=== PATIENT | male | born 1960 | race Two or more races ===

== ENCOUNTER 2024-10-27 14:52 | Outpatient (CLI) | payer MEDICARE | END 2024-10-27 17:00 | disposition home or self-care (01) | LOC: Rad HDHVI 14:52 | PROVIDERS: ATTEND Internal Medicine Cardiovascular Disease | DX: I77.819 Aortic ectasia, unspecified site (principal); I10 Essential (primary) hypertension | CPT/HCPCS: 93306 ==

== ENCOUNTER → 2024-11-12 | Outpatient (CLI) | payer MEDICARE ==
[~2024-11-12] MED LIST: ALLO300T2 PO; APIX5TAB PO; FENT75DI2 TD; HYDR-4798 PO; LEVO25TA6 PO; METO-289 PO; OMEP20TA PO; PAR20T PO; SUCR1TAB31 OR; TAMS0.4C39 PO
--- NOTE | 2024-11-12 13:12 | DVH ---
XY CHEST TWO VIEWS ROUTINE CLINICAL HISTORY: PRE OP CARDIAC CLEARANCE COMPARISON: None TECHNIQUE: Frontal and lateral view of the chest was obtained FINDINGS: Lines and Tubes: None Lungs: No focal consolidation. Pleura: No effusion. No pneumothorax. Cardiomediastinal contours: Unremarkable Bones: No acute osseous abnormality. IMPRESSION: No acute cardiopulmonary disease.
--- NOTE | 2024-11-13 10:37 | DVHHP ---
ADMIT DATE: 11/12/2024 HISTORY OF PRESENT ILLNESS: The patient is 63 years old, who is new to me, who I saw approximately 3 weeks ago when he presented with signs and symptoms complex of increasing shortness of breath, PND, and orthopnea. He was also having intermittent episodes of chest pain. Pertinent medical history is significant for acid reflux symptoms, atrial fibrillation with rapid ventricular response and the patient was having all the symptoms of heart failure. The patient was put on anticoagulation. The beta blockade was initiated and since then his symptoms have improved, but he is continuing to experience chest pain and shortness of breath. Echocardiogram because of rapid ventricular response also showed diminished left ventricular ejection fraction in the 40 range and therefore, the patient is now scheduled to undergo left and right heart catheterization. Risks and benefits were explained to the patient. The patient understands and agrees. The patient denies any fever, chills, melena, hematochezia. No bleeding diathesis. No hematemesis, hemoptysis, hematuria or melena. He denies any history of CVA, denies any history of seizure disorder, movement disorder. Denies any connective tissue disease such as Lupus or rheumatoid arthritis. He has degenerative arthritis however. He has acid reflux. He has epigastric discomfort, but since being on sucralfate symptoms have improved. Denies any tobacco use currently. No history of respiratory failure, no history of sepsis in the past. No history of myocardial infarction. FAMILY HISTORY: Noncontributory. SOCIAL HISTORY: Negative at this present time. PHYSICAL EXAMINATION: VITAL SIGNS: Blood pressure is 142/80, pulse 70 and irregular. O2 saturation is 97% on room air. HEENT: Pupils are reactive. Funduscopic shows no AV nicking, no exudates, no papilledema. Sclerae anicteric. Extraocular muscles are intact. Tympanic membranes are within normal limits, with positive light reflex. Oral mucosa moist. Posterior pharynx without any exudate. NECK: No JVD appreciated. Carotid pulses are 2+ symmetrical. Normal upstroke and contour. No nuchal rigidity. Thyroid is within normal limits. PULMONARY: Clear to auscultation in all lung polo. No rhonchi. No wheezes. No egophony. Tympanic to percussion. CARDIOVASCULAR: Irregularly irregular. PMI is slightly inferiorly displaced. There is a 2/6 systolic murmur along the left sternal border as well. ABDOMEN: Soft, nontender. Normal bowel sounds. No epigastric tenderness at this present time. No CVA tenderness. No suprapubic tenderness. Stool guaiac is negative. NEUROLOGIC: The patient is intact. DTRs are 2+ symmetrical. Cranial nerves 2-12 are within normal limits. Sensory and motor modalities are intact. LABORATORY DATA: Labs show creatinine of 0.78 and hematocrit of 39.2. ASSESSMENT AND PLAN: The patient is now scheduled to undergo left and right heart catheterization with the possibility of revascularization. Further recommendations after the angiogram. Chris Yadav MD SA/DENITA TID: [id number] RECEIPT: [id number]
== END | disposition home or self-care (01) ==
LOC: Rad HDHVI 09:25
PROVIDERS: ATTEND Internal Medicine Cardiovascular Disease
DX: Z01.818 Encounter for other preprocedural examination (principal); R06.02 Shortness of breath
CPT/HCPCS: 36415; 71046; 80048; 85025; 85610; 85730

== ENCOUNTER 2024-11-13 07:23 | Day surgery (SDC) | payer MEDICARE ==
[2024-11-12 11:39] LABS: Chloride 102 mmol/L (98-107); Sodium 144 mmol/L (136-145)
[2024-11-12 11:40] LABS: Anion Gap 11 (5-15); Calcium 10.2 mg/dL (8.7-10.4); Carbon Dioxide 31 mmol/L (20-31)
[2024-11-12 11:41] LABS: Potassium 3.0 mmol/L (3.5-5.1)
[2024-11-12 11:44] LABS: Glucose 106 mg/dL (74-106)
[2024-11-12 11:45] LABS: BUN/Creatinine Ratio 15.3 (10.0-20.0); Blood Urea Nitrogen 15 mg/dL (9-23); INR 0.96 (0.9-1.15); Partial Thromboplastin Time 26.2 SEC (24.5-34.5); Prothrombin Time 10.2 sec (9.3-11.8)
[2024-11-12 12:20] LABS: Hematocrit 36.8 % (41.0-53.0); Hemoglobin 12.5 g/dL (13.5-17.5); Mean Corpuscular Hemoglobin 26.8 pg (28.0-32.0); Mean Corpuscular Volume 79.4 fL (80.0-100.0); Nucleated Red Blood Cells % 0.2 %
[~2024-11-13] VITALS: Ht 188 cm; Wt 95.7 kg
[2024-11-13] VITALS (7 sets, daily range): BP systolic 115–136; BP diastolic 72–95; PULSE 76–93; RESP 11–16; TEMP 98.9; O2SAT 93–95
[2024-11-13] MEDS: IOHEXOL 350 MG/ML 100ML IJ ONE (09:07)
[2024-11-13] MEDS: LIDOCAINE 2%HCL (LOCAL ANESTH.) INJ 20ML MDV ONE (09:14)
[2024-11-13] MEDS: MIDAZOLAM HCL 2MG/2ML 2ml VIAL (1mg/ml) ONE (09:14)
[2024-11-13] MEDS: ANGIOMAX 250 MG VIAL IV ONE (09:14)
[2024-11-13] MEDS: fentaNYL CITRATE 100 MCG/2 ML VL ONE (09:14)
[2024-11-13] MEDS: SODIUM CHL 0.9% 50 ML ONE (09:14)
[2024-11-13] MEDS: CLOPIDOGREL BISULFATE 75 MG TAB ONE (10:42)
--- NOTE | 2024-11-13 10:51 | DVHDS ---
DATE OF DISCHARGE: 11/13/2024 DISCHARGE DIAGNOSES: The patient underwent successful revascularization of the first diagonal with shockwave thrombectomy catheter. The patient's FFR on the diagonal was 0.78. FFR in the proximal to mid LAD was 0.92. No intervention was performed of the LAD. It is about a 30% narrowing at best. The patient underwent just shockwave thrombectomy device deployment of the first diagonal. I do not believe it was necessary to put a stent in the artery. Circumflex and right coronary artery have mild intimal irregularity without any flow-restrictive lesion. Left ventricular function shows an EF around 45% to 50% with an LVEDP of 16 mmHg with no gradient across the aortic valve. Right heart catheterization showed RA pressure of 6 to 7 mmHg, RV pressure of 32/8, capillary wedge pressure of 16, and PA pressure of 32/18. HOSPITAL COURSE: At this time, aggressive risk modification. AFib needs to be treated with anticoagulation. Antiplatelet therapy will be maintained for about a month. Chris Yadav MD SA/VIKKI TID: [id number] RECEIPT: [id number]
--- NOTE | 2024-11-13 12:10 | DVHOP ---
DATE OF SURGERY: 11/13/2024 PROCEDURES PERFORMED: * Selective left and right coronary angiography. * Ventriculogram. * Right iliac angiography. * FFR of the proximal LAD as well as proximal diagonal. * Angioplasty with thrombectomy shockwave treatment of the first diagonal of the LAD with a 2.5 x 12 mm shockwave thrombectomy catheter. There were no complications. The patient tolerated the procedure well. RESULTS: * Right heart catheterization showed RA pressure of 7, RV pressure of 32/9, capillary wedge pressure of 15-17 mmHg and PA pressure of 32/18. There was no gradient across the aortic valve. Left ventricular function showed mild global hypokinesis with an estimated EF of around 50%-55%. * Selective left and right coronary angiography revealed: 1. Left main patent. 2. Left anterior descending artery mild intimal irregularity with about 30% narrowing in the mid portion. First diagonal, however, had a high-grade narrowing of greater than 90% of the small caliber vessel measuring about 2.5 cm in diameter. CONCLUSION: Thus, the patient underwent successful right heart catheterization with no evidence of pulmonary hypertension. Capillary wedge pressure is within normal limits and the patient's left ventricular end-diastolic pressure is also about 16 mmHg with no gradient across the aortic valve with left ventricular systolic pressure of 142. Selective left and right coronary angiography revealed: * Left main patent. * Left anterior descending artery had mild 30% narrowing. * First diagonal had 80% narrowing, underwent revascularization following FFR of the vessel with a 2.5 x 12 mm shockwave thrombectomy catheter, now with less than 10% residual stenosis. * Circumflex artery with mild intimal irregularity without any flow restrictive lesion. * Right coronary artery with mild intimal irregularity without any flow restrictive lesion. At this time, the patient will be conservatively managed. We will start treating more aggressively for his hypertension and also now for coronary artery disease. We will continue to follow the patient. Chris Yadav MD SA/KIRTI/BRIAN TID: [id number] RECEIPT: [id number]
== END 2024-11-13 13:15 | disposition home or self-care (01) ==
LOC: CATH 07:23
PROVIDERS: ATTEND Internal Medicine Cardiovascular Disease
DX: R06.02 Shortness of breath (principal); I49.5 Sick sinus syndrome; I25.10 Atherosclerotic heart disease of native coronary artery without angina pectoris; I10 Essential (primary) hypertension; Z79.890 Hormone replacement therapy; Z79.899 Other long term (current) drug therapy
CPT/HCPCS: 36415; 80048; 85025; 85610; 85730; 92920; 92972; 92973; 93460; 93571; C1760; C1761; C1769; C1887; C1894; J0583; J1644; J2250; J3010; J7030; Q9967; 99152; 99153; C9600